=== PATIENT | female | born 1955 | race Hispanic/Latino ===

== ENCOUNTER 2020-06-05 09:56 | Emergency (ER) | payer MEDICARE, OTHER ==
[2020-06-05] MEDS ORDERED: predniSONE 20 MG TAB ONE (10:13)
[2020-06-05] MEDS ORDERED: Ketorolac Tromethamine 30 MG/ML VIAL ONE (10:13)
[2020-06-05] MEDS ORDERED: Diazepam 5 MG TAB ONE (10:13)
== END 2020-06-05 10:21 | disposition home or self-care (01) ==
LOC: BURERS 09:56
DX: S39.012A Strain of muscle, fascia and tendon of lower back, initial encounter (principal); E11.9 Type 2 diabetes mellitus without complications; X50.9XXA Other and unspecified overexertion or strenuous movements or postures, initial encounter; Z79.899 Other long term (current) drug therapy; Z79.84 Long term (current) use of oral hypoglycemic drugs
CPT/HCPCS: 96372; 99283; J1885; J7512

== ENCOUNTER 2021-04-29 17:16 | Emergency (ER) | payer MEDICARE | END 2021-04-29 18:12 | disposition home or self-care (01) | LOC: BURERS 17:16 | DX: S92.355A Nondisplaced fracture of fifth metatarsal bone, left foot, initial encounter for closed fracture (principal); S93.492A Sprain of other ligament of left ankle, initial encounter; E11.9 Type 2 diabetes mellitus without complications; Z79.84 Long term (current) use of oral hypoglycemic drugs; Z79.899 Other long term (current) drug therapy; X50.9XXA Other and unspecified overexertion or strenuous movements or postures, initial encounter ==

== ENCOUNTER 2021-06-09 08:23 | Emergency (ER) | payer MEDICARE ==
[2021-06-09 19:29] LABS: SARS-CoV-2 PCR by NAA Not Detected (NotDetected)
== END 2021-06-09 08:45 | disposition home or self-care (01) ==
LOC: BURERS 08:23
DX: J06.9 Acute upper respiratory infection, unspecified (principal); H61.21 Impacted cerumen, right ear; Z20.822 Contact with and (suspected) exposure to COVID-19; E11.9 Type 2 diabetes mellitus without complications
CPT/HCPCS: 99283; U0003; U0005

== ENCOUNTER 2021-12-13 12:53 | Outpatient (CLI) | payer MEDICARE | END 2021-12-13 12:54 | disposition home or self-care (01) | LOC: BURRAD 12:53 | PROVIDERS: ATTEND Physician Assistant | DX: M54.2 Cervicalgia (principal); R29.898 Other symptoms and signs involving the musculoskeletal system; Z98.1 Arthrodesis status | CPT/HCPCS: 72040 ==

== ENCOUNTER 2022-01-23 04:15 | Emergency (ER) | payer MEDICARE ==
[2022-01-23] MEDS ORDERED: Aspirin Chewable 81 MG TAB ONE ×2 (05:01)
[2022-01-23 05:08] LABS: #Eosinphils 0.2 thou/uL (0.0-0.7); #Lymphocytes 2.1 thou/uL (1.20-3.40); #Monocytes 0.7 thou/uL (0.11-0.59); #Neutrophils 6.8 thou/uL (1.40-6.50); %Basophils 0.5 % (0.0-1.0); %Eosinophils 2.1 % (0.0-10.0); %Lymphocytes 21.7 % (21.0-51.0); %Monocytes 7.2 % (0.0-10.0); %Neutrophils 68.6 % (42.0-75.0); Hemoglobin 12.2 g/dL (12.0-16.0); Mean Corpuscular HGB CONC 32.6 g/dL (32.0-36.0); Mean Corpuscular Hemoglobin 28.1 pg (27.0-31.0); Mean Corpuscular Volume 86.1 fL (78.0-98.0); Mean Platelet Volume 7.2 fL (7.4-10.4); Platelet Count 339 thou/uL (130-400); RBC Distribution Width 14.8 % (11.5-14.5); Red Blood Cell (RBC) Count 4.36 mill/uL (4.20-5.40); White Blood Cell (WBC) Count 9.8 thou/uL (4.8-10.8)
[2022-01-23 05:22] LABS: ALT (SGPT) 13 U/L (8-55); AST (SGOT) 12 U/L (5-34); Albumin 4.2 g/dL (3.4-4.8); Alkaline Phosphatase 108 U/L (40-110); Anion Gap 17 mmol/L (10-20); BUN (Urea Nitrogen) 27 mg/dL (9.8-20.1); Bilirubin, Total 0.4 mg/dL (0.2-1.2); CK (CPK) 24 U/L (29-168); Calc. Creatinine Clearance 0 mL/min (70-130); Calcium 8.7 mg/dL (7.8-10.44); Carbon Dioxide 21 mmol/L (23-31); Chloride 106 mmol/L (98-107); Estimated GFR 42; Globulin 3.8 g/dL (2.4-3.5); Glucose 82 mg/dL (80-115); Lipase 27 U/L (8-78); Potassium 4.5 mmol/L (3.5-5.1); Sodium 139 mmol/L (136-145)
== END 2022-01-23 05:48 | disposition home or self-care (01) ==
LOC: BURERS 04:15
DX: R07.89 Other chest pain (principal); I10 Essential (primary) hypertension; E11.9 Type 2 diabetes mellitus without complications; E78.00 Pure hypercholesterolemia, unspecified; Z79.899 Other long term (current) drug therapy; Z79.84 Long term (current) use of oral hypoglycemic drugs; Z79.82 Long term (current) use of aspirin
CPT/HCPCS: 71045; 80053; 82550; 83690; 84484; 85025; 85379; 93005

== ENCOUNTER 2022-06-20 10:29 | Outpatient (CLI) | payer MEDICARE | END 2022-06-20 10:30 | disposition home or self-care (01) | LOC: BURRAD 10:29 | PROVIDERS: ATTEND Physician Assistant | DX: G57.92 Unspecified mononeuropathy of left lower limb (principal); M47.816 Spondylosis without myelopathy or radiculopathy, lumbar region; Z98.890 Other specified postprocedural states | CPT/HCPCS: 72100 ==

== ENCOUNTER 2023-02-07 10:50 | Outpatient (CLI) | payer MEDICARE | END 2023-02-07 10:51 | disposition home or self-care (01) | LOC: BURRAD 10:50 | PROVIDERS: ATTEND Physician Assistant | DX: S92.354D Nondisplaced fracture of fifth metatarsal bone, right foot, subsequent encounter for fracture with routine healing (principal) ==

== ENCOUNTER 2023-03-04 16:35 | Emergency (ER) | payer MEDICARE ==
[2023-03-04] MEDS ORDERED: Diazepam 10 MG/2 ML SYRINGE ONE (17:15)
[2023-03-04] MEDS ORDERED: Ketorolac Tromethamine 30 MG/ML VIAL ONE (17:15)
== END 2023-03-04 18:41 | disposition home or self-care (01) ==
LOC: BURERS 16:35
DX: G44.209 Tension-type headache, unspecified, not intractable (principal); E11.9 Type 2 diabetes mellitus without complications
CPT/HCPCS: 96374; 96375; J1885; J3360

== ENCOUNTER 2023-12-23 08:08 | Outpatient (CLI) | payer MEDICARE | END 2023-12-23 08:09 | disposition home or self-care (01) | LOC: BURRAD 08:08 | PROVIDERS: ATTEND Physician Assistant | DX: M25.552 Pain in left hip (principal); M54.50 Low back pain, unspecified; M47.816 Spondylosis without myelopathy or radiculopathy, lumbar region; Z98.890 Other specified postprocedural states | CPT/HCPCS: 72100 ==